=== PATIENT | female | born 1960 | race Caucasian/White ===

== ENCOUNTER 2019-08-20 18:52 | Emergency (ER) | payer BC, OTHER ==
--- NOTE | 2019-08-20 18:58 | EDM.PDOC ---
ED HPI GENERAL MEDICAL PROBLEM - General Chief Complaint: Lower Extremity Injury/Pain Stated Complaint: ankle pain Time Seen by Provider: 08/20/19 18:55 Source of Information: Reports: Patient, Old Records ([facility] chart/EMR) History Limitations: Reports: No Limitations - History of Present Illness INITIAL COMMENTS - FREE TEXT/NARRATIVE: The patient was brought to the emergency room via private automobile by her daughter for evaluation of 9/10 left ankle pain, which resulted from her falling off of a step stool at home at about 15:30 hours this afternoon. She denies any head injury, loss of consciousness, change in mental status, neck/ back pain, paresthesias, neurological deficits, or other complaints or injuries. No recent history of abdominal pain, heartburn, nausea, gross hematochezia, or any food intolerance, including fatty foods, etc. with recent exacerbation of her Crohn's disease during the last month, although her chronic diarrhea and mild melanoma has improved with current high-dose prednisone therapy. The patient also denies any recent fever, cough, wheezing, dyspnea, etc.. Onset: Today, Sudden Onset Date: 08/20/19 Onset Time: 15:30 Duration: Constant Location: Reports: Lower Extremity, Left. Denies: Head, Face, Neck, Chest, Abdomen, Back, Pelvis, Upper Extremity, Left, Upper Extremity, Right, Lower Extremity, Right, Radiates to Quality: Reports: Same as Previous Episode, Sharp, Throbbing Severity: Severe Improves with: Reports: Rest Worsens with: Reports: Movement Context: Reports: Trauma (As above) Associated Symptoms: Denies: Confusion, Chest Pain, Cough, Diaphoresis, Fever/ Chills, Headaches, Loss of Appetite, Malaise, Nausea/Vomiting, Rash, Seizure, Shortness of Breath, Syncope, Weakness Treatments PAMPHLET DISTRIBUTOR: Reports: Cold Therapy. Denies: Acetaminophen, NSAIDS Left Ankle Pain Score (Numeric/FACES): 9 - Related Data Allergies Allergy/AdvReac Type Severity Reaction Status Date / Time bupropion Allergy Rash Verified 08/20/19 19:19 clindamycin Allergy Itching Verified 08/20/19 19:19 metoclopramide Allergy Irritabilit Verified 08/20/19 19:19 y morphine Allergy Itching Verified 08/20/19 19:19 spironolactone Allergy Hives Verified 08/20/19 19:19 Home Meds: Home Meds Adalimumab [Humira(Cf) Pen Crohn's-Uc-Hs] 80 INJECT Q14D 08/20/19 [History] Azelastine/Fluticasone [Dymista Nasal Sharon] 2 spray NASBOTH DAILY 08/20/19 [ History] Cyclobenzaprine [Flexeril] 10 mg PO TID PRN 08/20/19 [History] EPINEPHrine [Auvi-Q] 0.3 mg IJ ASDIRECTED PRN 08/20/19 [History] Fexofenadine/Pseudoephedrine [Francisca-D 12 Hour] 1 tab PO DAILY 08/20/19 [ History] Fluticasone Propionate [Flonase] 50 mcg NASBOTH DAILY 08/20/19 [History] Melatonin/Pyridoxine HCl (B6) [Melatonin 5 mg Tablet] 5 mg PO DAILY 08/20/19 [ History] Mesalamine [Asacol Hd] 800 mg PO TID 08/20/19 [History] Omeprazole Magnesium [Prilosec Otc] 40 mg PO DAILY 08/20/19 [History] Ondansetron [Zofran ODT] 1 mg SL ASDIRECTED PRN 08/20/19 [History] hydrOXYzine HCL [hydrOXYzine] 25 mg PO PRN 08/20/19 [History] predniSONE [Prednisone] 40 mg PO DAILY 08/20/19 [History] traZODone HCl [Trazodone HCl] 25 mg PO DAILY 08/20/19 [History] Past Medical History HEENT History: Reports: Allergic Rhinitis, Impaired Vision, Other (See Below). Denies: Cataract, Glaucoma, Hard of Hearing, Macular Degeneration, Otitis Media , Retinal Detachment Other HEENT History: Allergic rhinitis with previous immunotherapy/shots. She does wear glasses. Cardiovascular History: Reports: Other (See Below). Denies: Aneurysm, Arrhythmia, Blood Clots/VTE/DVT, CAD, Heart Murmur, High Cholesterol, Hypertension, ND, Syncope Other Cardiovascular History: Possible Prinzmetal angina in 2001. Borderline incomplete right bundle branch block. Mitral valve prolapse by echocardiogram Respiratory History: Reports: Bronchitis, Recurrent, COPD, Other (See Below). Denies: Asthma, Intubation, Previous, PE, Pneumonia, Recurrent, Pneumothorax, TB Other Respiratory History: Reactive airway disease secondary to infection. Gastrointestinal History: Reports: Cholelithiasis, Chronic Diarrhea, Colon Polyp , Gastritis, GERD, Helicobacter Pylori, PUD, Other (See Below). Denies: Celiac Disease, Fecal Incontinence, GI Bleed, Hepatitis, Hiatal Hernia, Inflammatory Bowel Disease, Irritable Bowel Syndrome, Jaundice, Pancreatitis Other Gastrointestinal History: Crohn's disease with chronic diarrhea. Recurrent peptic ulcer disease with history of Calderon's esophagitis. History of unknown type of colonic polyps with yearly colonoscopies and EGDs on an every 2 year basis. Genitourinary History: Reports: Renal Calculus, Other (See Below). Denies: Acute Renal Failure, Chronic Renal Insuffiency, STD, Urinary Incontinence, UTI, Recurrent Other Genitourinary History: History of urolithiasis with spontaneous passage. CREDIT CARD ANALYST History: Reports: Endometriosis, . Denies: Dysfunctional Uterine Bleeding, Fibroids, Spontaneous : 3 Para: 3 LMP (Approximate): Other (See Below) Other CREDIT CARD ANALYST History: Surgical menopause secondary to endometriosis as below. Full term without complications during pregnancies or deliveries Musculoskeletal History: Reports: Amputation, Arthritis, Back Pain, Chronic, Fracture, Osteoarthritis, Other (See Below). Denies: Gout, Neck Pain, Chronic, RA, SLE Other Musculoskeletal History: Left ankle fracture in 2011 with surgery as below. Tip/tuft fracture and amputation of the distal phalanx of digit #5 of the left hand on 09/01/03. Neurological History: Reports: Headaches, Chronic, Migraines. Denies: Cerebral Aneurysms, CVA, Head Trauma, MS, Neuropathy, Peripheral, Seizure, TIA, Vertigo Psychiatric History: Reports: Anxiety, Depression, Psych Hospitalization(s), Suicidal Ideation, Other (See Below). Denies: Abuse, Victim of, ADD, ADHD, Addiction, PTSD, Suicide Attempt Other Psychiatric History: Previous suicidal ideation and attempt with medication overdose on 04/30/99 with subsequent inpatient treatment. Endocrine/Metabolic History: Reports: Obesity/BMI 30+. Denies: Diabetes, Gestational, Diabetes, Type I, Diabetes, Type II, Diabetes Mellitus, Type 3c, Hypothyroidism, IDDM Hematologic History: Reports: None. Denies: Anemia, Blood Transfusion(s), Iron Deficiency Immunologic History: Denies: AIDS, HIV, SLE Oncologic (Cancer) History: Reports: None. Denies: Basal Cell Carcinoma, Breast , Cervix, Colon, Hodgkin's Lymphoma, Leukemia, Lymphoma, Malignant Melanoma, Non -Hodgkin's Lymphoma, Ovarian, Squamous Cell Carcinoma Dermatologic History: Denies: Eczema, Psoriasis - Infectious Disease History Infectious Disease History: Reports: Chicken Pox, Helicobacter Pylori, Shingles. Denies: C-Difficile, Measles, Meningitis, Mononucleosis, MRSA, Mumps , Pertussis (Whooping Cough), Rheumatic Fever, Rubella, Scarlet Fever, TB, VRE - Past Surgical History Head Surgeries/Procedures: Reports: None HEENT Surgical History: Reports: Adenoidectomy, Naso-Sinus Surgery, Oral Surgery , Tonsillectomy, Other (See Below). Denies: Cataract Surgery, Eye Surgery, Laser Surgery, LASIK, Myringotomy w Tube(s) Other HEENT Surgeries/Procedures: Tonsillectomy and adenoidectomy at about age 15. [place] teeth extraction 4 at about age 18. Sinus surgery 2 in her 30s. Cardiovascular Surgical History: Reports: None. Denies: Varicose Respiratory Surgical History: Reports: None. Denies: Thoracentesis GI Surgical History: Reports: Appendectomy, Cholecystectomy, Colonoscopy, EGD, Polypectomy, Other (See Below). Denies: Hernia, Abdominal, Hernia, Inguinal, Hernia Repair/Other Other GI Surgeries/Procedures: Appendectomy at age 15. Yearly colonoscopies with last colonoscopy in October 2018 with polypectomy at that time. EGDs on an every two-year basis with last evaluation in 2017. Open Cholecystectomy in the 1993. Abdominal exploration with small bowel release secondary to previous trauma with likely revision of multiple adhesions with concomitant salpingo- oophorectomyside unknown on 08/10/01. Female Surgical History: Reports: Hysterectomy, Salpingo-Oophorectomy, Other (See Below) Other Female Surgeries/Procedures: Partial hysterectomy with additional unilateral salpingo-oophorectomy in 1980 with subsequent additional salpingo- oophorectomy on 08/10/01 as above. Neurological Surgical History: Reports: Lumbar Spine, Spinal Fusion, Other (See Below) Other Neurological Surgeries/Procedures: Spinal fusion of L4-L5 in about 2008. Musculoskeletal Surgical History: Reports: ORIF, Other (See Below). Denies: Amputation, Arthroscopic Procedure, Carpal Tunnel, Ganglion Cyst, Joint Replacement Other Musculoskeletal Surgeries/Procedures:: Left distal fibular screw fixation in 2011. - Past Imaging History Past Imaging History: Reports: Cardiac Echo (October 2001), Stress Testing ( Positive Cardiolite stress test on 01/04/02 for diffuse ischemia with ejection fraction of 70%.), Other (See Below) (IVP 04/03/84.) Social & Family History - Family History Cardiac: Reports: CAD, Stent, Other (See Below) Other Cardiac Family History: Father with PTCA at age 76. Paternal grandfather from an ND in his 70s. Paternal grandmother from an ND in her 60s. Paternal uncle from an ND at age 50. Paternal aunt with fatal ND in her 60s. Both parents and paternal grandparents with hyperlipidemia. Hypertension in both parents. Neurological: Reports: Cerebral Aneurysms, Other (See Below) Other Neurological Family History: Male Cousin with fatal ruptured cerebral aneurysm at age 30. Psychiatric: Reports: Anxiety, Depression, Other (See Below) Other Psychiatric Family History: Mother with history of anxiety depression disorder including paranoia with mother also suffering from depression. Mother with organic brain syndrome. Oncologic: Reports: Uterine, Other (See Below) Other Oncologic Family History: Mother with uterine cancer in her 60s. Father with unknown type of skin cancer. - Tobacco Use Smoking Status *Q: Former Smoker Tobacco Use Within Last Twelve Months: No Years of Tobacco use: 46 Packs/Tins Daily: 1 Packs/Tins Daily Comment: Smoked between ages 7 and 53 with maximum use of 3 packs per day. 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 ED EXAM, GENERAL - Physical Exam Exam: See Below Exam Limited By: Uncooperative General Appearance: Alert, WD/WN, No Apparent Distress, Anxious (Mild to moderate) Head: Atraumatic, Normocephalic. No: Facial Swelling, Facial Tenderness, Sinus Tenderness Neck: Normal Inspection, Supple, Non-Tender, Full Range of Motion. No: Carotid Bruit, Lymphadenopathy (L), Lymphadenopathy (R), Thyromegaly Respiratory/Chest: No Respiratory Distress, Lungs Clear, Normal Breath Sounds, No Accessory Muscle Use, Chest Non-Tender. No: Pleural Rub, Retractions Cardiovascular: Normal Peripheral Pulses, Regular Rate, Rhythm, No Edema, No Gallop, No JVD, No Murmur, No Rub. No: Gallop/S3, Gallop/S4, Friction Rub Peripheral Pulses: 2+: Radial (L), Radial (R), Dorsalis Pedis (L) GI/Abdominal: Normal Bowel Sounds, Soft, Non-Tender, No Organomegaly, No Distention, No Abnormal Bruit, No Mass, Pelvis Stable, Other (obese). No: Guarding (Female) Exam: Deferred Rectal (Female) Exam: Deferred Back Exam: Normal Inspection, Full Range of Motion. No: CVA Tenderness (L), CVA Tenderness (R), Muscle Spasm Extremities: No Pedal Edema, Normal Capillary Refill, Joint Swelling (Bilateral left malleolar swelling and effusions with moderate localized palpation pain however no joint instability by limited exam), Leg Pain (As above with no knee pain, effusion, proximal fibular tenderness, etc.), Limited Range of Motion ( Left ankle secondary to pain). No: Non-Tender (As below), Fely's Sign Neurological: Alert, Oriented, CN II-XII Intact, Normal Cognition, Normal Gait, Normal Reflexes, No Motor/Sensory Deficits Psychiatric: Anxious (Mild to moderate). No: Depressed Mood Skin Exam: Warm, Dry, Intact, Normal Color, No Rash. No: Diaphoretic, Ecchymosis, Wound/Incision Lymphatic: No Adenopathy ED TRAUMA EXTREMITY PROCEDURES - Splinting Left Lower Extremity Splint Site: Left ankle Pre-Procedure NV Status: Normal Post-Procedure NV Status: Normal Splint Material: Fiberglass, Other (Secured with 4 inch Jacky wraps 2) Splint Design: Stirrup (6 x 30" fiberglass padded splint), Posterior (4 x 15" padded fiberglass splint) Applied & Form Fitted By: Provider Provider Post-Splint Application NV Check: NV Status Normal, Good Position Complications: No Course - Vital Signs Last Recorded V/S: Last Vital Signs Temp 36.8 C 08/20/19 19:07 Pulse 72 08/20/19 19:07 Resp 20 08/20/19 19:07 BP 135/85 08/20/19 19:07 Pulse Ox 98 08/20/19 19:07 Vital Signs - 24 hr 08/20/19 19:07 Temperature [ 36.8 C Temporal] Pulse, 72 Peripheral [ Left Pulse Oximetry] Respiratory 20 Rate Blood Pressure 135/85 [Left Upper Arm ] O2 Sat by Pulse 98 Oximetry - Orders/Labs/Meds Orders: Active Orders 24 hr Category Date Time Status Ankle Min 3V Lt [CR] Stat Exams 08/20/19 18:58 Ordered Foot Comp Min 3V Lt [CR] Stat Exams 08/20/19 18:59 Ordered Obtain Past Medical Record [OM.PC] Routine Oth 08/20/19 18:58 Active Labs: None Meds: Medications Discontinued Medications Generic Name Dose Route Start Last Admin Trade Name Freq PRN Reason Stop Dose Admin Ketorolac Tromethamine 60 mg 08/20/19 19:41 08/20/19 19:56 Toradol IM 08/20/19 19:42 60 mg ONETIME ONE Administration - Radiology Interpretation Free Text/Narrative:: X-rays of the left foot, 3 views, shows no evidence of fracture, dislocation, etc. X-rays of the left ankle, 3 views, shows status post screw fixation of the distal fibula with additional hairline nondisplaced medial malleolar fracture. Ankle mortise is intact. Departure - Departure Time of Disposition: 20:15 Disposition: Home, Self-Care 01 Condition: Good Clinical Impression: Peptic reflux disease, Mixed anxiety depressive disorder Closed left ankle fracture Qualifiers: Encounter type: initial encounter Qualified Code(s): S82.892A - Other fracture of left lower leg, initial encounter for closed fracture Osteoarthritis Qualifiers: Osteoarthritis location: multiple joints Osteoarthritis type: primary Qualified Code(s): M89.49 - Other hypertrophic osteoarthropathy, multiple sites Crohn's disease Qualifiers: Gastrointestinal tract location: large intestine Digestive disease complication type: without complication Qualified Code(s): K50.10 - Crohn's disease of large intestine without complications COPD (chronic obstructive pulmonary disease) Qualifiers: COPD type: emphysema Emphysema type: panlobular Qualified Code(s): J43.1 - Panlobular emphysema - Discharge Information *PRESCRIPTION DRUG MONITORING PROGRAM REVIEWED*: Not Applicable *COPY OF PRESCRIPTION DRUG MONITORING REPORT IN PATIENT PAULO: Not Applicable Instructions: Cast or Splint Care, Adult, [id number], Ankle Fracture, Easy-to -Read Referrals: Ritu Farr NP [Primary Care Provider] - Forms: ED Department Discharge Additional Instructions: 1. Call your orthopedic surgeon at [facility]clinic in [facility] tomorrow morning for recommended scheduled follow-up appointment in one week for probable short leg cast placement. Bring DVD of today's x-rays to that visit. 2. Tylenol 650 mg by mouth every 4 hours and/or OTC ibuprofen 2-3 tabs by mouth every 6 hours with food as directed./needed. You may stagger these medications for 48-72 hours only, which essentially means that you are receiving a pain medication about every 2 hours. Next dose of ibuprofen as needed in 6 hours secondary to medications given in the emergency room 3. Ice packs and leg elevation as directed 4. Limited weightbearing of the left foot and leg as discussed with continuation of short leg splint, crutch use, etc. until otherwise directed by your orthopedic surgeon 5. Immediately after this visit verify that your cellular telephone's voicemail has been activated and is empty. Also verify that your home telephone 's answering machine is operating properly and has space to receive messages. Note that it is sometimes necessary for us to be able to contact you at a later date to discuss your medical care. 6. Please remember that we are ALWAYS here for you and want to answer any questions you may have. Feel free to call the hospital any time and we call you back [facility]. Sepsis Event Note - Focused Exam Vital Signs: Vital Signs Temp Pulse Resp BP Pulse Ox 08/20/19 19:07 36.8 C 72 20 135/85 98 Date Exam was Performed: 08/20/19 Time Exam was Performed: 20:03 - Problem List & Annotations (1) Closed left ankle fracture SNOMED Code(s): 88053293 Code(s): S82.892A - OTH FRACTURE OF LEFT LOWER LEG, INIT FOR CLOS FX Status : Acute Priority: High Onset Date: 08/20/19 Annotation/Comment:: Various therapeutic options were discussed with the patient wishing to follow-up with her own orthopedic surgeon as per discharge instructions. DVD of today's x-rays were provided to the patient. Proper care of short leg splint, activity restrictions, etc. were extensively discussed. The patient came in with her own crutches. Qualifiers: Encounter type: initial encounter Qualified Code(s): S82.892A - Other fracture of left lower leg, initial encounter for closed fracture (2) COPD (chronic obstructive pulmonary disease) SNOMED Code(s): 72086010 Code(s): J44.9 - CHRONIC OBSTRUCTIVE PULMONARY DISEASE, UNSPECIFIED Status : Chronic Priority: Medium Annotation/Comment:: No recent fever or bronchitic type symptoms. The patient was congratulated about her previous tobacco cessation. Qualifiers: COPD type: emphysema Emphysema type: panlobular Qualified Code(s): J43.1 - Panlobular emphysema (3) Crohn's disease SNOMED Code(s): 03568379 Code(s): K50.90 - CROHN'S DISEASE, UNSPECIFIED, WITHOUT COMPLICATIONS Status: Chronic Priority: Medium Annotation/Comment:: Recent exacerbation as above with patient closely followed by her GI specialist. Apparent planned upcoming Humira therapy. Qualifiers: Gastrointestinal tract location: large intestine Digestive disease complication type: without complication Qualified Code(s): K50.10 - Crohn's disease of large intestine without complications (4) Osteoarthritis SNOMED Code(s): 238384439 Code(s): M19.90 - UNSPECIFIED OSTEOARTHRITIS, UNSPECIFIED SITE Status: Chronic Priority: Medium Annotation/Comment:: Stable by history with no history of other injuries. Qualifiers: Osteoarthritis location: multiple joints Osteoarthritis type: primary Qualified Code(s): M89.49 - Other hypertrophic osteoarthropathy, multiple sites (5) Peptic reflux disease SNOMED Code(s): 172254142 Code(s): K21.9 - GASTRO-ESOPHAGEAL REFLUX DISEASE WITHOUT ESOPHAGITIS Status: Chronic Priority: Medium Annotation/Comment:: Stable by history, (6) Mixed anxiety depressive disorder SNOMED Code(s): 457981917 Code(s): F41.8 - OTHER SPECIFIED ANXIETY DISORDERS Status: Chronic Priority: Medium Annotation/Comment:: Stable by history with no current medical therapy required. - Problem List Review Problem List Initiated/Reviewed/Updated: Yes - My Orders Last 24 Hours: My Active Orders 08/20/19 18:58 Ankle Min 3V Lt [CR] Stat Obtain Past Medical Record [OM.PC] Routine 08/20/19 18:59 Foot Comp Min 3V Lt [CR] Stat - Assessment/Plan Last 24 Hours: My Active Orders 08/20/19 18:58 Ankle Min 3V Lt [CR] Stat Obtain Past Medical Record [OM.PC] Routine 08/20/19 18:59 Foot Comp Min 3V Lt [CR] Stat Assessment:: As above Plan: As above. Extensive precautions were given to the patient, who is in agreement with the treatment plan. Instructions
[2019-08-20] MEDS: Ketorolac 60 MG/2 ML SDV IM ONE (19:56)
== END 2019-08-20 20:15 | disposition home or self-care (01) ==
LOC: LL.ED 18:52
DX: S82.55XA Nondisplaced fracture of medial malleolus of left tibia, initial encounter for closed fracture (principal); K27.9 Peptic ulcer, site unspecified, unspecified as acute or chronic, without hemorrhage or perforation; F41.8 Other specified anxiety disorders; M89.49 Other hypertrophic osteoarthropathy, multiple sites; K50.10 Crohn's disease of large intestine without complications; J43.1 Panlobular emphysema; E66.9 Obesity, unspecified; M19.90 Unspecified osteoarthritis, unspecified site; F41.9 Anxiety disorder, unspecified; F32.9 Major depressive disorder, single episode, unspecified; I10 Essential (primary) hypertension; I25.2 Old myocardial infarction; Z88.8 Allergy status to other drugs, medicaments and biological substances; Z88.5 Allergy status to narcotic agent; Z88.1 Allergy status to other antibiotic agents; Z87.891 Personal history of nicotine dependence; W08.XXXA Fall from other furniture, initial encounter; Y92.009 Unspecified place in unspecified non-institutional (private) residence as the place of occurrence of the external cause
CPT/HCPCS: 29515; 73610-LT; 73630-LT; 96372; 99283-25; J1885